=== PATIENT | female | born 1980 | race Asian ===

== ENCOUNTER 2020-03-26 12:12 | Outpatient (CLI) | payer OTHER ==
[2020-03-26 12:42] LABS: BASOPHILS % (AUTO) 0.4 % (0.0-2.0); HEMATOCRIT 41.8 % (36-48); LYMPHOCYTES # (AUTO) 1.4 K/uL (1.0-5.5); LYMPHOCYTES % (AUTO) 11.6 % (20.5-51.5); MEAN CORPUSCULAR HEMOGLOBIN 33 pg (27-31); MEAN CORPUSCULAR HGB CONC 34 % (32-36); MEAN CORPUSCULAR VOLUME 98 fL (79.0-98.0); MONOCYTES # (AUTO) 0.3 K/uL (0.0-1.0); MONOCYTES % (AUTO) 2.1 % (1.7-9.3); NEUTROPHILS # (AUTO) 10.5 K/uL (1.8-7.7); NEUTROPHILS % (AUTO) 85.9 % (40.0-70.0); PLATELET COUNT (AUTO) 331 K/uL (130-430); RED BLOOD CELL COUNT(AUTO) 4.29 MIL/uL (4.2-6.2); RED CELL DISTRIBUTION WIDTH 12.7 % (9.0-15.0); WHITE BLOOD COUNT (AUTO) 12.2 K/uL (4.8-10.8)
[2020-03-26 13:02] LABS: THYROID STIMULATING HORMONE 1.83 uIu/mL (0.34-4.82)
[2020-03-27 04:28] LABS: FOLLICLE STIMULATION HORMONE 5.4 mIU/mL (.); LUETENIZING HORMONE 10.4 mIU/mL (.)
== END 2020-03-26 22:01 | disposition home or self-care (01) ==
LOC: SLB 12:12
PROVIDERS: ATTEND Specialist
DX: N92.6 Irregular menstruation, unspecified (principal)
CPT/HCPCS: 36415; 82670; 83001; 83002; 83540-TC; 84443-TC; 85025

== ENCOUNTER 2020-03-28 08:38 | Outpatient (CLI) | payer OTHER | END 2020-03-28 21:06 | disposition home or self-care (01) | LOC: SUS 08:38 | PROVIDERS: ATTEND Specialist | DX: N83.292 Other ovarian cyst, left side (principal); N92.6 Irregular menstruation, unspecified | CPT/HCPCS: 76830-TC; 76857 ==